=== PATIENT | male | born 1980 | race Asian ===

== ENCOUNTER 2019-04-08 19:19 | Emergency (ER) | payer SELFPAY ==
[~2019-04-08] VITALS: Ht 182.9 cm; Wt 81.6 kg
[2019-04-08 19:52] VITALS: Ht 182.9 cm; Wt 81.6 kg
[2019-04-08 22:05] VITALS: BP 144/67
== END 2019-04-08 22:05 | disposition home or self-care (01) ==
LOC: ED 19:19
DX: S91.332A Puncture wound without foreign body, left foot, initial encounter (principal); W22.8XXA Striking against or struck by other objects, initial encounter; Y93.89 Activity, other specified; Y92.89 Other specified places as the place of occurrence of the external cause; Y99.8 Other external cause status
CPT/HCPCS: 90715